=== PATIENT | female | born 1940 | race Two or more races ===

== ENCOUNTER → 2024-07-14 | Outpatient (CLI) | payer MEDICARE, MEDICAID, SELFPAY ==
[2024-07-14 11:06] LABS: Glucose Estimated Average 252 mg/dL (80-131); Hemoglobin A1C 10.4 % Hgb (4.8-6.0)
== END | disposition home or self-care (01) ==
LOC: COPL 09:53
PROVIDERS: PCP Student in an Organized Health Care Education/Training Program; Referring Provider Student in an Organized Health Care Education/Training Program; Visit Provider Student in an Organized Health Care Education/Training Program
DX: E11.59 Type 2 diabetes mellitus with other circulatory complications (principal); Z79.4 Long term (current) use of insulin
CPT/HCPCS: 36415; 83036

== ENCOUNTER 2024-07-28 10:09 | Outpatient (AMB) | payer MEDICARE, MEDICAID, SELFPAY ==
--- NOTE | 2024-07-28 10:11 | PD.RESCLINIC ---
Vital Signs 07/28/24 10:16 Weight 61.462 kg Weight Measurement Method Standing Scale BP 101/61 Blood Pressure Source Automatic Cuff Blood Pressure Location Left Upper Arm Position Sitting Respiration 16 Pulse 127 H Pulse Source Monitor Temp 98.0 F Temp Source Oral Pulse Oximetry (%) 95 Oxygen Delivery Method Room Air Allergies/Meds Allergies & Medications Allergies vadim Allergy (Severe, Verified 07/28/24 10:17) Hives codeine Allergy (Mild, Verified 07/28/24 10:17) NAUSEA VOMIT morphine Allergy (Mild, Verified 07/28/24 10:17) NAUSEA AND VOMIT Medication Reconciliation atorvastatin 20 mg tablet 20 mg PO QHS HLD 1 month #30 tabs 08/11/23 [Rx Confirmed 07/28/24] furosemide 40 mg tablet (Lasix) 40 mg PO QDAY #30 tabs 08/20/23 [Rx Confirmed 07/28/24] spironolactone 25 mg tablet 25 mg PO QDAY #60 tabs 08/20/23 [Rx Confirmed 07/28/24] incontinence pad, liner, disp ([employer] pads) #174 ea 08/27/23 [Rx Confirmed 06/09/24] blood sugar diagnostic (Accutrend Glucose test strips) #25 ea 09/29/23 [Rx Confirmed 06/09/24] blood-glucose meter (Accu-Chek Guide Glucose Meter) #1 ea 09/29/23 [Rx Confirmed 06/09/24] lancets (Fingerstix Lancets) #200 ea 09/29/23 [Rx Confirmed 06/09/24] aspirin 81 mg tablet,delayed release 81 mg PO QDAY #30 tabs 10/15/23 [Rx Confirmed 07/28/24] blood sugar diagnostic (Accu-Chek Guide test strips) #50 ea 10/24/23 [Rx Confirmed 06/09/24] blood-glucose meter,continuous (Dexcom G6 Tin Stacker) #1 ea 10/24/23 [Rx Confirmed 06/09/24] blood-glucose sensor (Dexcom G6 Sensor device) #3 ea 10/24/23 [Rx Confirmed 06/09/24] lancets 28 gauge (Acti-Tio Lancets) #100 ea 10/24/23 [Rx Confirmed 06/09/24] blood pressure monitor (Blood Pressure Kit) #1 ea 11/24/23 [Rx Confirmed 06/09/24] incontinence pad, liner, disp #120 ea 11/24/23 [Rx Confirmed 06/09/24] amlodipine 10 mg tablet 5 mg PO QDAY HTN 05/28/24 [History Confirmed 05/28/24] ferrous sulfate 325 mg (65 mg iron) tablet 325 mg PO QDAY 05/28/24 [History Confirmed 07/28/24] glimepiride 4 mg tablet 4 mg PO QDAY 05/28/24 [History Confirmed 07/28/24] atenolol 25 mg tablet 25 mg PO QDAY #30 tabs 05/31/24 [Rx Confirmed 07/28/24] blood-glucose meter,continuous (Dexcom G7 Tin Stacker) #1 ea 05/31/24 [Rx Confirmed 06/09/24] blood-glucose sensor (Dexcom G7 Sensor device) #1 ea 05/31/24 [Rx Confirmed 06/09/24] pen needle, diabetic 32 gauge x 5/32 (1st Tier Unifine Pentips) #100 ea 05/31/24 [Rx Confirmed 06/09/24] famotidine 20 mg tablet 20 mg PO QDAY #30 tabs 07/28/24 [Rx] insulin glargine 100 unit/mL (3 mL) subcutaneous pen (Basaglar KwikPen U-100 Insulin) 35 unit (0.35 mL) subcut QAM #15 mL 07/28/24 [Rx] metformin 500 mg tablet,extended release 24 hr 500 mg PO QDAY #30 tabs 07/28/24 [Rx] MA Intake Visit Data Collection New Patient or Established: Established Patient (seen at [facility] within 3 years) Seen by Clinical Staff ONLY (RN/MA): No Pain Present Currently: No Pain scale:: 0 Pain Scale Used: [place]/Numerical PCP or OBGYN visit in last 3 months: Yes Do You Feel Safe at Home: Yes Authorities Contacted: N/A Smoking Status Smoking Status: Never smoker Immunization / Flu Flu Vaccine in the Last 12 Months: No Flu Vaccine Exclusion Criteria: No Exclusion Criteria Past Medical History Past Medical History NEUROLOGIC: Negative Neurological Disorders, Transient Ischemic Attacks (TIA), Seizures or Traumatic Brain Injury CARDIAC: Positive Hypercholesterolemia, Congenital Heart Disease and Hypertension; Negative Cardiac Disorders or Congestive Heart Failure RESPIRATORY: Negative Chronic Obstructive Pulmonary Disease (COPD) or Asthma GASTROINTESTINAL: Negative Gastrointestinal Disorders or Hepatitis GENITOURINARY: Negative Genitourinary Disorders or Renal Disease REPRODUCTIVE: Negative Pelvic Inflammatory Disease MUSCULOSKELETAL: Positive Osteoporosis and Carpal Tunnel Syndrome ENT: Positive Cataracts ENDOCRINE: Positive Endocrine Disorders and Diabetes Mellitus Type 2; Negative Diabetes Mellitus Type 1 HEMATOLOGIC: Positive Anemia; Negative Blood Disorders or Sickle Cell Disease OTHER HISTORY: Positive Blood Transfusions and Chicken Pox; Negative Autoimmune Disease, Blood Transfusion Reaction, Anesthesia Reactions, MRSA, VRSA, Vancomycin-Resistant Enterococci, Human Immunodeficiency Virus (HIV), Measles, Mumps, Rubella ([place] Measles), Pertussis, Clostridium Difficile or Cancer Family History FAMILY HISTORY: Positive Family Cardiac Disorders and Family Surgery; Negative Family Psychiatric Problems, Family Respiratory Disorders, Family Gastrointestinal Problems, Family Cancer or Family Anesthesia Reaction Surgical History SURGICAL: Positive Abdominal Surgery, Joint Replacement and Hysterectomy; Negative Cardiac Surgery, Pacemaker, Endocrine Surgery, Thyroidectomy or Ear Surgery Social History SMOKING STATUS: Smoking status: Never smoker ALCOHOL: Alcohol Intake: Never HOUSING: Housing: House LIVES WITH: Lives With: Family Patient Portal Questionaires Social History Living Situation History Housing: House Tobacco History Smoking Status: Never smoker Alcohol History Alcohol Intake: Never Domestic Abuse History Do You Feel Safe at Home: Yes Review of Systems Report any current symptoms Only answer those that you have currently: Past Medical History Past Medical History Have you ever been diagnosed with any of the following: Neurological Problems Transient Ischemic Attacks (TIA): No Seizures: No Traumatic Brain Injury: No Cardiology Problems Hypercholesterolemia: Yes Congestive Heart Failure: No Congenital Heart Disease: Yes Hypertension: Yes Respiratory Problems Chronic Obstructive Pulmonary Disease (COPD): No Asthma: No Stomache/Intestinal Problems Hepatitis: No Genital/Urinary Problems Renal Disease: No Reproductive Problems Pelvic Inflammatory Disease: No Musculoskeletal Problems Osteoporosis: Yes Carpal Tunnel Syndrome: Yes Head,Eye,Nose,Throat Problems Cataracts: Yes Endocrine Problems Diabetes Mellitus Type 1: No Diabetes Mellitus Type 2: Yes Blood Problems Anemia: Yes Sickle Cell Disease: No Other Problems Autoimmune Disease: No Blood Transfusions: Yes Blood Transfusion Reaction: No Anesthesia Reactions: No MRSA: No VRSA: No Vancomycin-Resistant Enterococci: No Human Immunodeficiency Virus (HIV): No Chicken Pox: Yes Measles: No Mumps: No Rubella ([place] Measles): No Pertussis: No Clostridium Difficile: No Cancer: No Surgical History Hysterectomy: Yes Pacemaker: No Thyroidectomy: No History of Present Illness HPI Narrative Patient is an 83-year-old female with a past medical history of hypertension, hyperlipidemia, diabetes mellitus type 2 insulin-dependent, CAD status post stents at distal circumflex artery on Brilinta, severe calcified aortic stenosis, history of recurrent UTIs. Neuro Urologist, Dr. Hess, following patients aortic stenosis with possibility of Transcatheter aortic valve re-placement. Dual anti-platelet until 10/2024. Spironolactone currently on hold. Patient is here to follow-up on A1c and average glucose. A 10.6 and average glucose of 252 (07/14/2024). Denied hypoglycemic episodes of glucose reading below 80. Denied increase perspiration or irritability. Polyuria has improved since discharge form hospital. Best morning glucose reading has been 80. Postprandial glucose usually high 200s. Highest reading of 400. Patient decreased Lantus on her own from 35 units HS to 25 units HS due to fear of hypoglycemic episodes, despite denying any. Recent ER discharge on 06/25/2024 abdominal pain, nausea, diarrhea, and vomiting. UA positive for esterase, WBC 49, and RBC 3 with negative urine culture. Abdominal/Pelvis CT showed pelvicalyceal systems and proximal urteres mild wall thickening and irregular thickening of the urinary bladder wall. As well as extra hepatic biliary tract dilation, recommending U/S. Completed Cephalexin 500 mg TID, for 7 days. Denied dysuria today. Patient accompanied by granddaughter and home health following patient. Review of Systems Review of Systems Narrative Review of Systems: General appearance: NO weight change, NO fatigue, NO weakness, NO fever, NO chills, NO night sweats, No cough Skin: NO rash, NO itching, NO sores, NO moles HEENT: NO Trauma, NO nausea, NO vomiting, NO visual changes, NO blurry vision, NO double vision, YES tinnitus, YES dizziness from sitting to standing position, NO vertigo, NO ear discharge, NO rhinorrhea, NO stuffiness, NO sneezing, NO allergy, NO epistaxis. NO Hoarseness, NO sore throat, NO swollen neck. Cardiac: NO Palpitations, NO dyspnea on exertion, NO orthopnea, NO paroxysmal nocturnal dyspnea, NO edema Respiratory: NO Shortness of Breath, NO Wheezing, NO Cough, NO Sputum, NO hemoptysis GI:NO appetite, NO nausea, NO vomiting, NO dysphagia, NO changes in bowel frequency, NO stool color, NO diarrhea, NO constipation, NO hemetemesis, NO hemorrhoids, NO melena, NO hematechezia, NO abdominal pain, NO jaundice Renal: YES but improved frequency, NO hesitancy, NO urgency, NO dysuria, NO hematuria, NO nocturia, NO incontinence MSK: NO muscle weakness, NO gout, NO arthritis, NO muscle stiffness Neuro: NO headaches, NO tremors, NO weakness, NO paralysis, NO seizures, NO loss of consciousness, NO numbness. Hem: NO anemia, NO easy bruising/bleeding, NO petechiae, NO purpura Endo: NO heat/cold intolerance, NO excessive sweating, YES polyuria, NO polydipsia, NO polyphagia, NO thyroid problems, YES diabetes Pysch: NO mood, NO anxiety, NO depression Objective/Exam Narrative Physical exam: Vitals: T 98.0, BP 101/61, HR 127, RR 16, spO2 95 61.462 General Appearance: Alert and Orientated x3, well-nourished female who is sitting on exam room in no acute distress who is hard of hearing. Thorax/Lungs: Symmetrical with good expansion. Chest and back non-tender. Lungs resonant to percussion. Breath sounds vesicular without crackles, wheezes, or rhonchi Cardiovascular/Peripheral Vascular: No jugular venous distention noted. Systolic murmur, S1 and S2 difficult to appreciate. No peripheral edema noted. Abdomen: Bowel sounds are active. No tenderness to deep or light palpation. Assessment & Plan Diagnosis / Problem List (1) Diabetes: Status: Acute Qualifiers: Diabetes mellitus complication detail: with other circulatory complications Diabetes mellitus complication status: with circulatory complication Diabetes mellitus oil heaterman insulin use: with jail use Diabetes mellitus type: type 2 Qualified Code(s): E11.59 - Type 2 diabetes mellitus with other circulatory complications; Z79.4 - middle or intermediate school principal (current) use of insulin Assessment & Plan: Patient has been non adherent to previous Lantus dose of 35 units and lowered dose to 25 units HS.A1c 10.4 and average glucose 252 (07/14/2024). Patient denied hypoglycemic episodes but improved polyuria. Best morning glucose 80 and postprandial glucose of high 200-300s with worst reading of 400. Jardiance stopped as history of recurrent UTIs. Open to starting Metformin 500 mg QDay. Plan: -Metformin ER 500 mg QDay -Lantus 25 units HS -Consider new A1c and CMP to monitor renal function and starting metformin. (2) Diabetic nephropathy: Status: Acute Qualifiers: Diabetes mellitus type: type 2 Qualified Code(s): E11.21 - Type 2 diabetes mellitus with diabetic nephropathy Assessment & Plan: Given history of diabetes mellitus type 2-insulin dependent, CKD disease can not be ruled out. There is previous labs from June 2024 during ER visit showed a GFR of 49 which is a decrease from 55 during previous hospital discharge in May 2024. No new renal function panel since then, consider new labs for next visit. Improved polyuria. Pre-renal SANGEETHA can not be ruled out as previous labs where all the setting of infection and decrease oral intake. Obstructive SANGEETHA can not be ruled out given history of recurrent UTIs, likely in setting of hyperglycemia, but structural abnormalities vs malignancy an not be ruled out. Pelvis CT: Mild to modersate bilateral renal parenchymal scar formation Mild wall thickening of the pelvicalyceal systems and proximal ureters significant abnormal irregular thickening of the urinary bladder wall Plan: -Urology referral made to Dr. Rabago -consider renal panel (3) Recurrent UTI: Status: Acute Assessment & Plan: Likely secondary to elevated hyperglycemia and glucose in urine but other obstructive vs malignant causes can not be ruled out. Given recurrent UTIs, referral to urology made. Plan: -Urology referral made, Follow up with Dr. Rabago (4) GERD (gastroesophageal reflux disease): Status: Acute Qualifiers: Esophagitis presence: without esophagitis Qualified Code(s): K21.9 - Gastro-esophageal reflux disease without esophagitis Assessment & Plan: History of acid reflux that happens occasional after large meals. Patient takes famotidine 20 mg PRN. Plan: -Famotidine re-ordered Orders: Referrals Urology Laruie Green MD N39.0 - Urinary tract infection, site not specified Additional Assessment Attending note: I, Franky Viera MD, attest that I was physically present for the grove portions of the service and evaluated the patient with the resident and I reviewed and discussed the case with the resident and agree with the resident's findings and plans of care as documented above. Follow-up visit. Hemoglobin A1c of 10.6 with average glucose of 252. Decrease in polyuria. Postprandial glucoses continuing to be high. Patient had decreased dose of Lantus. Diet, exercise, footcare, eye care, insulin injections, and home testing reviewed. Will start metformin 500 mg daily and continue Lantus 25 units nightly. Jardiance stopped due to history of recurrent UTIs. Review of pelvis CT showing significant abnormal irregular thickening of the urinary bladder wall. Will make a referral to urology for further evaluation, may need cystoscopy. Continue to monitor CKD. Franky Viera MD Additional Plan -Urology Consult placed, Lantus and Famotadine re-ordered -Consider Liver U/S ( Mild intrahepatic biliary tract dilation, common hepatic duct 15 mm) -Consider new A1c and CMP to check renal function. - The patient's plan was discussed with attending Dr Maximiliano Green MD PGY1 Internal Medicine Advanced Care Planning Advance care planning discussed with:: patient and other Physician Billing Established Patient Established Patient: E/M Level 3-CPT [id number] Office Procedures [facility] Level of Care Nursing/Assessment Patient Status: Established Patient Nursing Assessment/Reassessment: Medication Reconciliation, Update PMH in EMR and Vital Signs Coordination of Care: Complex Care and Chronic Disease 1-5, Education Complex Pt/Fam, Lab and Imaging orders and Staff clarify orders Established Patient Charge Established Patient Point Assignment: 100 Established Patient Point Charge: EP Level 3 (80-115)
[2024-07-28 10:16] VITALS: BP 101/61; PULSE 127; RESP 16; TEMP 36.7; O2SAT 95
== END 2024-07-28 10:53 | disposition home or self-care (01) ==
LOC: HODAHC 10:09
PROVIDERS: PCP Student in an Organized Health Care Education/Training Program; Referring Provider Student in an Organized Health Care Education/Training Program; Supervising Provider Internal Medicine
DX: E11.21 Type 2 diabetes mellitus with diabetic nephropathy (principal); E11.65 Type 2 diabetes mellitus with hyperglycemia; Z79.4 Long term (current) use of insulin; K21.9 Gastro-esophageal reflux disease without esophagitis; N32.89 Other specified disorders of bladder; K83.8 Other specified diseases of biliary tract; Z87.440 Personal history of urinary (tract) infections
CPT/HCPCS: 99213; G0463

== ENCOUNTER 2024-10-03 14:43 | Emergency (ER) | payer MEDICARE, MEDICAID, SELFPAY ==
[2024-10-03] VITALS (7 sets, daily range): BP systolic 138–161; BP diastolic 75–79; PULSE 84–112; RESP 16–19; TEMP 37.1–38.6; O2SAT 89–98; BMI 29.2
--- NOTE | 2024-10-03 15:43 | XR_ITS ---
Examination: AP chest radiograph. TECHNIQUE: AP portable semiupright chest single view. EXAMINATION: October 03, 2024 at 1605 hours Comparison 05/28/2024 INDICATION: Shortness of breath. FINDINGS: Significant left base pneumonia. No pleural fluid. No thrombus identified. Significant vascular congestion. IMPRESSION: Significant left base pneumonia Mild associated heart failure
--- NOTE | 2024-10-03 15:44 | EDNOTE_ITS ---
Upper Respiratory Inf. RME/HPI General Chief Complaint: Flu Like Symptoms Stated Complaint: LETHARGIC, COUGH, FEVER Time Seen by Provider: 10/03/24 15:31 Arrival date/time: 10/03/24 14:43 This is an 84-year-old female that is brought in by granddaughter with complaints of lethargy, cough, fever that started last night. Patient has a history of anemia, hyperlipidemia, high blood pressure and diabetes. Related Data Home Medications ?Medication ?Instructions ?Recorded ?Confirmed amlodipine 10 mg tablet 5 mg PO QDAY HTN 05/28/24 Held on 05/31/24. Instructions: Resume on 06/07/24. Hold due to normal BP. Resume per PCP ferrous sulfate 325 mg (65 mg 325 mg PO QDAY 05/28/24 07/28/24 iron) tablet glimepiride 4 mg tablet 4 mg PO QDAY 05/28/24 Previous Rx's ?Medication ?Instructions ?Recorded atorvastatin 20 mg tablet 20 mg PO QHS HLD 1 month #30 tabs 08/11/23 furosemide 40 mg tablet (Lasix) 40 mg PO QDAY #30 tabs 08/20/23 Held on 05/31/24. Instructions: Resume on 06/03/24. Hold due to [place] and normal BP. Resume per PCP spironolactone 25 mg tablet 25 mg PO QDAY #60 tabs Held on 05/31/24. Instructions: Resume on 06/03/24. Hold due to normal BP. Resume per PCP incontinence pad, liner, disp #174 ea 08/27/23 ([employer] pads) blood sugar diagnostic (Accutrend #25 ea 09/29/23 Glucose test strips) blood-glucose meter (Accu-Chek #1 ea 09/29/23 Guide Glucose Meter) lancets (Fingerstix Lancets) #200 ea 09/29/23 aspirin 81 mg tablet,delayed 81 mg PO QDAY #30 tabs release blood sugar diagnostic (Accu-Chek #50 ea 10/24/23 Guide test strips) blood-glucose meter,continuous #1 ea 10/24/23 (Dexcom G6 Link Wire Fabric Machine Tender) blood-glucose sensor (Dexcom G6 #3 ea 10/24/23 Sensor device) lancets 28 gauge (Acti-Tio #100 ea 10/24/23 Lancets) blood pressure monitor (Blood #1 ea 11/24/23 Pressure Kit) incontinence pad, liner, disp #120 ea 11/24/23 atenolol 25 mg tablet 25 mg PO QDAY #30 tabs 05/31 blood-glucose meter,continuous #1 ea 05/31/24 (Dexcom G7 Link Wire Fabric Machine Tender) blood-glucose sensor (Dexcom G7 #1 ea 05/31/24 Sensor device) pen needle, diabetic 32 gauge x #100 ea 05/31/24 (1st Tier Unifine Pentips) famotidine 20 mg tablet 20 mg PO QDAY #30 tabs 07/28 insulin glargine 100 unit/mL (3 35 unit (0.35 mL) subc ut QAM #15 mL 07/28/24 mL) subcutaneous pen (Basaglar KwikPen U-100 Insulin) metformin 500 mg tablet,extended 500 mg PO QDAY #30 ta bs 07/28/24 release 24 hr levofloxacin 750 mg tablet 750 mg PO QDAY #5 tabs 10/26 Allergies Allergy/AdvReac Type Severity Reaction Status Date / Time vadim Allergy Severe Hives Verified 10/03/24 14:45 codeine Allergy Mild NAUSEA Verified 10/03/24 14:45 VOMIT morphine Allergy Mild NAUSEA AND Verified 10/03/24 14:45 VOMIT Review of Systems Review of Systems Systems Reviewed: All systems reviewed, normal except as documented Past Medical History Past Medical History CARDIAC: Positive Cardiac Disorders, Hypercholesterolemia, Congenital Heart Disease and Hypertension MUSCULOSKELETAL: Positive Musculoskeletal Disorders, Osteoporosis and Carpal Tunnel Syndrome ENT: Positive Cataracts ENDOCRINE: Positive Endocrine Disorders and Diabetes Mellitus Type 2 HEMATOLOGIC: Positive Anemia OTHER HISTORY: Positive Blood Transfusions and Chicken Pox Family History FAMILY HISTORY: Positive Family Cardiac Disorders and Family Surgery Surgical History SURGICAL: Positive Abdominal Surgery, Joint Replacement and Hysterectomy Social History SMOKING STATUS: Never smoker SUBSTANCE USE: does not use ALCOHOL: Never ED Exam General General appearance: Present alert and in no apparent distress Head Head exam: Present atraumatic Eye Eye exam: Present normal appearance, PERRL and EOMI ENT ENT exam: Present normal exam, normal oropharynx and mucous membranes moist Neck Neck exam: Present normal inspection, full ROM and trachea midline Chest Chest inspection: Present normal inspection and symmetric chest wall rise Respiratory Respiratory exam: Present normal lung sounds bilaterally Cardiovascular Cardiovascular exam: Present regular rate, normal rhythm and normal heart sounds Abdominal Exam Abdominal exam: Present soft Extremities Exam Extremities exam: Present normal inspection and full ROM Back Exam Back exam: Present normal inspection and full ROM Neurological Exam Neurological exam: Present alert, oriented X3 and CN II-XII intact Psychiatric Psychiatric exam: Present normal affect and normal mood Skin Skin exam: Present warm, dry, intact and normal color Course Quality Measures none Orders Category Date Time Status Bedside COVID-19 Antigen Test NOW Care 10/03/24 15:43 Completed Bedside Influenza A&B Antigen Test NOW Care 10/03/24 15:[address] head/brain wo con Stat Exams 10/03/24 15:45 Completed XR chest 1V Stat Exams 10/03/24 15:43 Completed Blood Culture (Lab) Stat Lab 10/03/24 15:59 Completed CBC Stat Lab 10/03/24 15:59 Completed Comprehensive Metabolic Panel Stat Lab 10/03/24 15:59 Completed Lactate (Lactic Acid) Stat Lab 10/03/24 15:59 Completed Lipase Stat Lab 10/03/24 15:59 Completed Procalcitonin Stat Lab 10/03/24 15:59 Completed Acetaminophen Supp [Tylenol Supp] Med 10/03/24 15:46 Discontinued 650 mg MN X1 ONE Azithromycin Po [Zithromax PO] Med 10/03/24 17:28 Discontinued 500 mg PO X1 ONE cefTRIAXone [Rocephin] 1,000 mg Med 10/03/24 17:28 Discontinued Sodium Chloride 0.9% [Ns] 50 ml IV X1 Vital Signs Vital signs: Vital Signs Temperature 99.7 F 10/03/24 14:59 Pulse Rate 112 H 10/03/24 14:59 Respiratory Rate 16 10/03/24 14:59 Blood Pressure 161/75 H 10/03/24 14:59 Pulse Oximetry (%) 89 L 10/03/24 14:59 Oxygen Delivery Method Room Air 10/03/24 14:59 Upper Respiratory Infection MDM Narrative MDM Narrative:: Chest x ray: FINDINGS: Significant left base pneumonia. No pleural fluid. No thrombus identified. Significant vascular congestion. IMPRESSION: Significant left base pneumonia Mild associated heart failure ct head: Findings: No significant ventricular enlargement. Intra-axial or extra-axial hemorrhage density is not seen. No mass effect or midline shift Basal cisterns are not remarkable. Fourth ventricle is midline. Cranial vault intact. Impression: Negative for acute hemorrhage, mass effect or midline shift Consider brain MRI follow-up, stroke protocol Patient's labs unremarkable. Patient's urine positive for UTI. Will send a urine culture. Patient's chest x-ray shows pneumonia. Will treat. Patient given a dose of Zithromax also Rocephin. Called granddaughter at [phone] and I let her know that she will be going home and she will need to be picked up. Patient needs to follow-up with primary provider in 1 to 2 days. Come back to the emergency room if symptoms change or worsen. Patient data External records reviewed:: [facility] previous records Clinical information provided by:: patient Social determinants that could affect healthcare access:: none Patient has the following chronic illnesses:: see hpi How is presenting disease/condition affected by chronic disease/condition?: exacerbated by Evaluation data The following diagnostics were reviewed and interpreted by me:: lab results and radiology exam(s) Lab and/or radiology exams considered but not ordered:: none Interpretation Summary: see note Medications / Prescriptions Medications or Prescriptions considered but not ordered:: none Medication administrations:: Medication Administration History Discontinued Medications Acetaminophen (Acetaminophen Supp 650 Mg Supp) 650 mg MN X1 ONE Stop: 10/03/24 15:47 Last Admin: 10/03/24 16:00 Dose: 650 mg Documented By: AJIT Azithromycin (Azithromycin 250 Mg Tablet) 500 mg PO X1 ONE Stop: 10/03/24 17:29 Last Admin: 10/03/24 18:42 Dose: 500 mg Documented By: AJIT Ceftriaxone Sodium 1,000 mg/ (Sodium Chloride) 50 mls @ 100 mls/hr IV X1 ONE Stop: 10/03/24 17:57 Last Infusion: 10/03/24 19:02 Dose: Infused Documented By: Admin: 10/03/24 18:32 Dose: 100 mls/hr Documented By: TM see mar Consultations Consultation(s) initiated? (list below): No Diagnosis Upper Respiratory Differential Diagnosis: upper respiratory infection, viral infection, influenza and other (pneumonia and uti ) Most likely diagnosis given after review of the tests above:: pneumonia and uti Admission Indicated Admission indicated?: not indicated Admission Request Was there a request for admission?: No Disposition Plan Disposition Plan: Discharge Discharge Attestation Discharge Attestation: The patient and all family members were given an opportunity to ask questions and understood the discharge instructions. Discharge instructions specifically effects, indications for sooner follow up or return to the emergency department, and the expected course of current diagnosis. Patient condition: Stable Discharge Plan Plan Patient Disposition: HOME (Self Care) Patient condition on transfer: Stable Prescriptions/Referrals Prescriptions/Med Rec: New levofloxacin 750 mg tablet 750 mg PO QDAY Qty: 5 0RF No Action atorvastatin 20 mg tablet 20 mg PO QHS 30 Days Qty: 30 3RF (DME) incontinence pad, liner, disp Pad See Rx Instructions .Route Qty: 120 5RF Rx Instructions: As directed (DME) blood pressure monitor [Blood Pressure Kit] Kit See Rx Instructions .Route Qty: 1 0RF Rx Instructions: As directed (DME) [employer] Pad See Rx Instructions .Route Qty: 174 0RF Rx Instructions: As directed metformin 500 mg tablet extended release 24 hr 500 mg PO QDAY Qty: 30 2RF famotidine 20 mg tablet 20 mg PO QDAY MDD 20 mg Qty: 30 2RF insulin glargine [Basaglar KwikPen U-100 Insulin] 100 unit/mL (3 mL) insulin pen 35 unit subcut QAM Qty: 15 2RF (DME) Accutrend Glucose test strips Strip See Rx Instructions .Route Qty: 25 3RF Rx Instructions: As directed (DME) blood-glucose meter [Accu-Chek Guide Glucose Meter] Misc See Rx Instructions .Route Qty: 1 0RF Rx Instructions: As directed (DME) lancets [Fingerstix Lancets] Misc See Rx Instructions .Route Qty: 200 0RF Rx Instructions: As directed (DME) Dexcom G6 Link Wire Fabric Machine Tender Misc See Rx Instructions .Route Qty: 1 0RF Rx Instructions: As directed (DME) Dexcom G6 Sensor Device See Rx Instructions .Route Qty: 3 1RF Rx Instructions: As directed (DME) Accu-Chek Guide test strips Strip See Rx Instructions .Route Qty: 50 2RF Rx Instructions: As directed (DME) lancets [Acti-Tio Lancets] 28 gauge misc See Rx Instructions .Route Qty: 100 1RF Rx Instructions: As directed ferrous sulfate 325 mg (65 mg iron) Tablet 325 mg PO QDAY glimepiride 4 mg Tablet 4 mg PO QDAY amlodipine 10 mg tablet 5 mg PO QDAY (DME) Dexcom G7 Sensor Device See Rx Instructions .Route Qty: 1 6RF Rx Instructions: As directed (DME) Dexcom G7 Link Wire Fabric Machine Tender Misc See Rx Instructions .Route Qty: 1 0RF Rx Instructions: As directed (DME) pen needle, diabetic [1st Tier Unifine Pentips] 32 gauge x 5/32 needle See Rx Instructions .Route Qty: 100 2RF Rx Instructions: As directed atenolol 25 mg Tablet 25 mg PO QDAY Qty: 30 0RF spironolactone 25 mg tablet 25 mg PO QDAY Qty: 60 0RF furosemide [Lasix] 40 mg tablet 40 mg PO QDAY Qty: 30 1RF aspirin 81 mg Tablet,Delayed Release (Dr/Ec) 81 mg PO QDAY Qty: 30 1RF Referrals: No Primary/Family,Physician [Primary Care Provider] - In 1 week Problem List Clinical Impression: Pneumonia Patient/Caregiver Discharge Instructions Discharge Activity: activity as tolerated Education Materials: ED Pneumonia (Adult) Additional Instructions: Please drink plenty of fluids. Take antibiotics as prescribed. Follow-up with primary provider in 1 to 2 days. Come back to the emergency room if symptoms change or worsen. Print Language: British Stand Alone Forms: Diane Award Info., Patient Portal Info Letter PA/[employer] Supervising Physician [employer] Supervising Physician: gayle
--- NOTE | 2024-10-03 15:45 | XR_ITS ---
Examination: CT brain head without contrast. 2-D sagittal coronal reconstructions Date and time of exam:October 03, 2024 1753 hours INDICATIONS: Altered mental status lethargy today COMPARISON: August 17, 2023 CTDI: vol (mGy):53.8 DLP: (mGycm):1101 Technique: Multiple CT axial sections of the brain have been obtained, 5 mm slice thickness. Contrast has not been administered. 2-D sagittal, coronal reconstructions have been obtained Low dose protocols were performed. One or more of the following dose reduction techniques were used; automated exposure control, adjustment of the mA and/or KV according to patient size, use of iterative reconstruction technique. Findings: No significant ventricular enlargement. Intra-axial or extra-axial hemorrhage density is not seen. No mass effect or midline shift Basal cisterns are not remarkable. Fourth ventricle is midline. Cranial vault intact. Impression: Negative for acute hemorrhage, mass effect or midline shift Consider brain MRI follow-up, stroke protocol
--- NOTE | 2024-10-03 15:47 | PC.NURSE ---
PT COMES IN FROM HOME, GRANDDAUGHTER AT BEDSIDE TO PROVIDE CURRENT SITUATION AND HISTORY. PER GRANDDAUGHTER PT WOKE UP LAST NIGHT COUGHING, WARM TO TOUCH AND LETHARGIC. PT NORMALLY WALKS AROUND WITH WALKER NO RECENT FALLS, BUT TODAY MULTIPLE PEOPLE HAD TO ASSIST HER GET INTO THE CAR. GRANDDAUGHTER REMAINS AT BEDSIDE ATTENTIVE TO PT.
[2024-10-03] MEDS: ACETAMINOPHEN SUPP 650 MG SUPP PR (16:00)
[2024-10-03 16:19] LABS: Lactate (Lactic Acid) 1.2 mMol/L (0.4-2.0)
[2024-10-03 16:22] LABS: Basophils % (Auto) 0 % (0-2.5); Eosinophils % (Auto) 0 % (0-10); Hematocrit 33.2 % (36.0-46.0); Hemoglobin 11.4 g/dL (12.0-16.0); Immature Granulocytes % (Auto) 0 % (0-0); Immature Granulocytes Auto 0.03 Thou/mm3 (0.00-0.00); Lymphocytes # (Auto) 0.6 Thou/mm3 (1.0-4.8); Lymphocytes % (Auto) 7 % (10-50); Mean Corpuscular HGB Conc 34.3 g/dl (31.0-37.0); Mean Corpuscular Hemoglobin 30.7 pg (25.0-35.0); Mean Corpuscular Volume 90 fL (80-100); Monocytes # (Auto) 0.8 Thou/mm3 (0.0-0.8); Monocytes % (Auto) 10 % (0-12); Neutrophils # (Auto) 6.5 Thou/mm3 (1.8-7.7); Neutrophils % (Auto) 82 % (37-80); Nucleated Red Blood Cell % 0 /100 WBC (0); Platelet Count 231 Thou/mm3 (140-440); RDW Standard Deviation 44.3 fL (36.4-46.3); Red Blood Count 3.71 Miln/mm3 (4.00-5.20); White Blood Count 7.9 Thou/mm3 (3.6-11.0)
[2024-10-03 16:54] LABS: Alanine Aminotransferase 16 U/L (10-49); Albumin, Serum 3.8 gm/dL (3.4-4.8); Alkaline Phosphatase 120 U/L (46-116); Anion Gap 10 (7-16); Aspartate Amino Transferase 21 U/L (0-34); BUN/Creatinine Ratio 13 Ratio (12-20); Bilirubin,Total 0.9 mg/dL (0.3-1.2); Blood Urea Nitrogen 13 mg/dL (9-23); Calcium 8.6 mg/dL (8.3-10.6); Calcium (Corrected) 8.8 mg/dL (8.5-10.1); Carbon Dioxide 24.3 mMol/L (20.0-31.0); Chloride 101 mMol/L (98-107); Estimated Creatinine Clearance 40.6 mL/min (>60); Globulin 3.7 gm/dL (2.3-3.5); Glucose 83 mg/dL (74-106); Lipase 26 U/L (12-53); Osmolality,Calculated 269 (275-295); Potassium 3.7 mMol/L (3.4-5.1); Procalcitonin 0.06 ng/ml (0.0-0.49); Sodium 135 mMol/L (136-145); Total Protein 7.5 gm/dL (5.7-8.2); eGFR 55 See Note
[2024-10-03] MEDS: AZITHROMYCIN 250 MG TABLET 500 MG PO (18:42)
== END 2024-10-03 19:40 | disposition home or self-care (01) ==
PROVIDERS: Nurse Practitioner Family; Emergency Provider Emergency Medicine
DX: J18.9 Pneumonia, unspecified organism (principal); E78.5 Hyperlipidemia, unspecified; E11.9 Type 2 diabetes mellitus without complications
CPT/HCPCS: 36415; 70450; 71045; 80053; 81001; 83605; 83690; 84145; 85025; 87040; 87086; 87400; 87811; 96365; 99284; J0696; A9270

== ENCOUNTER → 2024-11-18 | Outpatient (BNVA) | payer MEDICARE, MEDICAID, SELFPAY | END | disposition home or self-care (01) | PROVIDERS: PCP Nurse Practitioner Family; Referring Provider Nurse Practitioner Family; Visit Provider Urology | DX: N39.0 Urinary tract infection, site not specified (principal); N32.89 Other specified disorders of bladder; I12.9 Hypertensive chronic kidney disease with stage 1 through stage 4 chronic kidney disease, or unspecified chronic kidney disease; E11.22 Type 2 diabetes mellitus with diabetic chronic kidney disease; N18.2 Chronic kidney disease, stage 2 (mild); I25.10 Atherosclerotic heart disease of native coronary artery without angina pectoris; E11.40 Type 2 diabetes mellitus with diabetic neuropathy, unspecified; E78.00 Pure hypercholesterolemia, unspecified | CPT/HCPCS: 81003; 99203; G0463 ==

== ENCOUNTER → 2025-01-04 | Outpatient (CLI) | payer MEDICARE, MEDICAID, SELFPAY ==
[2025-01-04 10:43] LABS: Albumin, Serum 4.4 gm/dL (3.4-4.8); Anion Gap 4 (7-16); BUN/Creatinine Ratio 23 Ratio (12-20); Blood Urea Nitrogen 28 mg/dL (9-23); Calcium 9.5 mg/dL (8.3-10.6); Calcium (Corrected) 9.5 mg/dL (8.5-10.1); Chloride 100 mMol/L (98-107); Creatinine (Component) 1.2 mg/dL (0.6-1.3); Glucose 207 mg/dL (74-106); Osmolality,Calculated 277 (275-295); Potassium 3.7 mMol/L (3.4-5.1); Sodium 133 mMol/L (136-145); eGFR 44 See Note
== END | disposition home or self-care (01) ==
LOC: COPL 09:24
PROVIDERS: PCP Family Medicine; Referring Provider Internal Medicine Cardiovascular Disease; Visit Provider Internal Medicine Cardiovascular Disease
DX: Z95.5 Presence of coronary angioplasty implant and graft (principal)
CPT/HCPCS: 36415; 80069

== ENCOUNTER → 2025-01-10 | Outpatient (BNVA) | payer MEDICARE, MEDICAID, SELFPAY | END | disposition home or self-care (01) | PROVIDERS: PCP Nurse Practitioner Family; Referring Provider Nurse Practitioner Family; Visit Provider Urology | DX: N32.89 Other specified disorders of bladder (principal); N32.3 Diverticulum of bladder; N35.92 Unspecified urethral stricture, female; Z87.440 Personal history of urinary (tract) infections; I12.9 Hypertensive chronic kidney disease with stage 1 through stage 4 chronic kidney disease, or unspecified chronic kidney disease; E11.22 Type 2 diabetes mellitus with diabetic chronic kidney disease; N18.9 Chronic kidney disease, unspecified | CPT/HCPCS: 52281; 96372; A4217; A4649; C1894; J1580; A9270 ==

== ENCOUNTER → 2025-01-11 | Outpatient (CLI) | payer MEDICARE, MEDICAID, SELFPAY | END | disposition home or self-care (01) | LOC: SLDO 14:43 | PROVIDERS: Referring Provider Urology; Visit Provider Urology | DX: N39.0 Urinary tract infection, site not specified (principal) | CPT/HCPCS: 87086 ==

== ENCOUNTER 2025-01-30 14:26 | Emergency (ER) | payer MEDICARE, MEDICAID, SELFPAY ==
[2025-01-30 14:31] VITALS: PULSE 120; RESP 18; O2SAT 97; BMI 26.5
--- NOTE | 2025-01-30 14:39 | XR_ITS ---
Examination: CT brain head without contrast. 2-D sagittal coronal reconstructions Date and time of exam:January 30, 2025 1504 hours Comparison October 03, 2024 INDICATIONS: Altered mental status beginning this morning CTDI: vol (mGy):49.9 DLP: (mGycm):1005 Technique: Multiple CT axial sections of the brain have been obtained, 5 mm slice thickness. Contrast has not been administered. 2-D sagittal, coronal reconstructions have been obtained Low dose protocols were performed. One or more of the following dose reduction techniques were used; automated exposure control, adjustment of the mA and/or KV according to patient size, use of iterative reconstruction technique. Findings: No significant ventricular enlargement. Intra-axial or extra-axial hemorrhage density is not seen. No mass effect or midline shift Basal cisterns are not remarkable. Fourth ventricle is midline. Cranial vault intact. Significant left maxillary sinusitis Impression: Negative for acute hemorrhage, mass effect or midline shift Advise clinical correlation and follow up accordingly
--- NOTE | 2025-01-30 14:39 | XR_ITS ---
Examination: AP chest single view Technique one AP portable semiupright chest single view Date and time: January 30, 2025 1456 hours Comparison October 03, 2024 INDICATIONS: Generalized weakness today. FINDINGS: Normal heart size. Lungs are clear. Prominent osteopenia IMPRESSION: No active disease
--- NOTE | 2025-01-30 14:39 | EKG_ITS ---
[facility] Test Date: 2025-01-30 Pat Name: YOLANDA RENO Department: Room: - Gender: Female Ski Topper: : 1940 Requested By: Wesley Barry Order Number: [id number] Reading MD: Wesley Barry Measurements Intervals [place] Rate: 120 P: MS: QRS: -50 QRSD: 102 T: 110 QT: 320 QTc: 453 Interpretive Statements ATRIAL FIBRILLATION WITH RAPID VENTRICULAR RESPONSE LEFT AXIS DEVIATION [QRS AXIS < -30] MODERATE VOLTAGE CRITERIA FOR LVH, CONSIDER NORMAL VARIANT [MEETS CRITERIA IN ONE OF: R(aVL), S(V1), R(V5), R(V5/V6)+S(V1)] POSSIBLE ANTEROSEPTAL MYOCARDIAL INFARCTION , OF INDETERMINATE AGE [30 ms Q WAVE IN V1-V4] MODERATE T-WAVE ABNORMALITY, CONSIDER LATERAL ISCHEMIA [-0.1+ mV T-WAVE IN I/aVL/V5/V6] Compared to ECG 05/28/2024 08:04:59 Left-axis deviation now present T-wave abnormality now present Possible ischemia now present Sinus rhythm no longer present Left anterior fascicular block no longer present ST (T wave) deviation no longer present Myocardial infarct finding still present /store/S0/[id number]
[2025-01-30 14:42] VITALS: BP 125/73; PULSE 104; PULSE 108; RESP 16; TEMP 37.2; O2SAT 98
[2025-01-30] MEDS: SODIUM CHLORIDE 0.9% 1000 ML 1,000 ML 999 ML IV ×2 (14:46→18:44)
[2025-01-30 15:00] LABS: Base Excess, Venous 0 (-3-3); O2 Saturation, Venous 80 % (96-97); PCO2, Venous 39 mmHg (36-56); PO2, Venous 41 mmHg (15-58); pH, Venous 7.42 (7.33-7.66)
[2025-01-30 15:04] LABS: Beta Hydroxybutyrate 0.8 mmol/L (<0.6)
[2025-01-30 15:07] LABS: Basophils # (Auto) 0.1 Thou/mm3 (0.0-0.2); Basophils % (Auto) 1 % (0-2.5); Eosinophils # (Auto) 0.1 Thou/mm3 (0.0-0.5); Eosinophils % (Auto) 1 % (0-10); Hematocrit 37.3 % (36.0-46.0); Hemoglobin 13.8 g/dL (12.0-16.0); Immature Granulocytes % (Auto) 0 % (0-0); Immature Granulocytes Auto 0.01 Thou/mm3 (0.00-0.00); Lymphocytes # (Auto) 1.5 Thou/mm3 (1.0-4.8); Lymphocytes % (Auto) 22 % (10-50); Mean Corpuscular Hemoglobin 32.3 pg (25.0-35.0); Mean Corpuscular Volume 87 fL (80-100); Monocytes # (Auto) 0.6 Thou/mm3 (0.0-0.8); Monocytes % (Auto) 9 % (0-12); Neutrophils # (Auto) 4.7 Thou/mm3 (1.8-7.7); Neutrophils % (Auto) 68 % (37-80); Nucleated Red Blood Cell % 0 /100 WBC (0); Platelet Count 200 Thou/mm3 (140-440); RDW Standard Deviation 41.3 fL (36.4-46.3); Red Blood Count 4.27 Miln/mm3 (4.00-5.20)
[2025-01-30 15:26] LABS: Collection Type, Urine Clean Catch; Squamous Epithelial Cell,Urine 0 /hpf (0-5)
--- NOTE | 2025-01-30 15:29 | PD.EDAMS ---
Altered Mental Status RME/HPI General Chief Complaint: Altered Mental Status Stated Complaint: AMS Time Seen by Provider: 01/30/25 14:36 Arrival date/time: 01/30/25 14:26 RME / HPI RME / HPI narrative: 84 year old female with history of hypertension, diabetes, aortic stenosis, s/p PCI 2023 presents to the ED BIBA from home for evaluation of altered mental status today. Per the family, the patient went to sleep at her normal state of health and noted when she woke up this morning she appeared confused and didn't know what she was doing. Unsure what time the patient went to bed. Per medics, blood sugar was not measurable. While in the ED patient is altered and unable to provide any additional history. Related Data Home Medications ?Medication ?Instructions ?Recorded ?Confirmed amlodipine 10 mg tablet 5 mg PO QDAY HTN 05/28/24 01/30/25 glimepiride 4 mg tablet 4 mg PO QDAY 05/28/24 01/30/25 insulin glargine 100 unit/mL (3 25 unit subcut QAM 01/30/25 01/30/25 mL) subcutaneous pen (Basaglar KwikPen U-100 Insulin) Previous Rx's ?Medication ?Instructions ?Recorded atorvastatin 20 mg tablet 20 mg PO QHS HLD 1 month #30 tabs 08/11/23 furosemide 40 mg tablet (Lasix) 40 mg PO QDAY #30 tabs 08/20/23 Held on 05/31/24. Instructions: Resume on 06/03/24. Hold due to SANGEETHA and normal BP. Resume per PCP spironolactone 25 mg tablet 25 mg PO QDAY #60 tabs 08/20/23 Held on 05/31/24. Instructions: Resume on 06/03/24. Hold due to normal BP. Resume per PCP incontinence pad, liner, disp #174 ea 08/27/23 (Depend [employer] pads) blood sugar diagnostic (Accutrend #25 ea 09/29/23 Glucose test strips) blood-glucose meter (Accu-Chek #1 ea 09/29/23 Guide Glucose Meter) lancets (Fingerstix Lancets) #200 ea 09/29/23 aspirin 81 mg tablet,delayed 81 mg PO QDAY #30 tabs 10/15/23 release blood sugar diagnostic (Accu-Chek #50 ea 10/24/23 Guide test strips) blood-glucose sensor (Dexcom G6 #3 ea 10/24/23 Sensor device) blood-glucose,allergist/immunologist physician,cont #1 ea 10/24/23 (Dexcom G6 [employer]) lancets 28 gauge (Acti-Tio #100 ea 10/24/23 Lancets) blood pressure monitor (Blood #1 ea 11/24/23 Pressure Kit) incontinence pad, liner, disp #120 ea 11/24/23 blood-glucose sensor (Dexcom G7 #1 ea 05/31/24 Sensor device) blood-glucose,allergist/immunologist physician,cont #1 ea 05/31/24 (Dexcom G7 [employer]ender) pen needle, diabetic 32 gauge x #100 ea 05/31/24 (1st Tier Unifine Pentips) nitrofurantoin 100 mg PO Q12H 5 days #10 caps 01/30/25 monohydrate/macrocrystals 100 mg capsule (Macrobid) Allergies Allergy/AdvReac Type Severity Reaction Status Date / Time vadim Allergy Severe Hives Verified 01/10/25 11:54 codeine Allergy Mild NAUSEA Verified 01/10/25 11:54 VOMIT morphine Allergy Mild NAUSEA AND Verified 01/10/25 11:54 VOMIT Review of Systems Review of Systems ROS Unobtainable: unobtainable due to mental status Past Medical History Past Medical History CARDIAC: Positive Cardiac Disorders, Atrial Fibrillation, Hypercholesterolemia, Congenital Heart Disease and Hypertension MUSCULOSKELETAL: Positive Musculoskeletal Disorders, Osteoporosis and Carpal Tunnel Syndrome ENT: Positive Cataracts ENDOCRINE: Positive Endocrine Disorders and Diabetes Mellitus Type 2 HEMATOLOGIC: Positive Anemia OTHER HISTORY: Positive Blood Transfusions and Chicken Pox Family History FAMILY HISTORY: Positive Family Cardiac Disorders and Family Surgery Surgical History SURGICAL: Positive Coronary Stent, Abdominal Surgery, Joint Replacement and Hysterectomy Social History SMOKING STATUS: Never smoker SUBSTANCE USE: does not use ED Exam Narrative Physical exam: GENERAL APPEARANCE: Awake, alert and oriented to person only, no obvious distress, nontoxic appearing HEENT: NC, AT. MMM. EOMI, clear conjunctiva, oropharynx clear. NECK: Supple without lymphadenopathy. No stiffness or restricted ROM. HEART: Normal rate and regular rhythm, normal S1/S1, no m/r/g LUNGS: CTAB, moving air well. No crackles or wheezes are heard. ABDOMEN: Soft, old open cholecystectomy scar in the RUQ and large midline suprapubic scar noted, nontender, nondistended with good bowel sounds heard. BACK: No midline C/T/L spine pain or deformity, No CVAT, no obvious deformity. EXTREMITIES: Without cyanosis, clubbing or edema. MUSCULOSKELETAL: FROM of all major joints, no chest tenderness NEUROLOGICAL: Awake, alert and oriented to person only, moving all 4 extremities. CN not formally tested but appear grossly intact. Skin: Warm and dry without any rash. Course Quality Measures none Orders Category Date Time Status Bedside Blood Glucose NOW Care 01/30/25 14:38 Completed Personnel Security Specialist Q4H START 00 Care 01/30/25 14:42 Completed EKG (ED ONLY) *Do not use* NOW Care 01/30/25 14:39 Completed Insert IV NOW Care 01/30/25 14:[address] head/brain wo con Stat Exams 01/30/25 14:39 Completed EKG (ED Only) Stat Exams 01/30/25 14:39 Draft XR chest 1V Stat Exams 01/30/25 14:39 Completed Blood Culture (Lab) Stat Lab 01/30/25 16:50 Received CBC Stat Lab 01/30/25 14:56 Completed CMP [Comprehensive Metabolic Panel] Stat Lab 01/30/25 14:56 Completed Ketone [Beta Hydroxybutyrate] Stat Lab 01/30/25 14:56 Completed Urinalysis Stat Lab 01/30/25 15:21 Completed VBG [Venous Blood Gas] Stat Lab 01/30/25 14:56 Completed Insulin Regular Med 01/30/25 15:37 Discontinued 8 unit SC X1 ONE Sodium Chloride 0.9% 1000 ml [Ns] 1,000 ml Med 01/30/25 14:37 Discontinued IV 999 mls/hr Sodium Chloride 0.9% 1000 ml [Ns] 1,000 ml Med 01/30/25 18:40 Discontinued IV 999 mls/hr Sodium Chloride 0.9% 1000 ml [Ns] 1,000 ml Med 01/30/25 18:41 Discontinued IV 999 mls/hr cefTRIAXone/D5w 1gm IV premix [Rocephin/D5w 1gm IV Med 01/30/25 16:31 Discontinued premix] 1 gm in 50 ml IV X1 Vital Signs Vital signs: Vital Signs Temperature 98.9 F 01/30/25 14:42 Pulse Rate 108 H 01/30/25 14:42 Respiratory Rate 16 01/30/25 14:42 Blood Pressure 125/73 01/30/25 14:42 Pulse Oximetry (%) 98 01/30/25 14:42 Oxygen Delivery Method Room Air 01/30/25 14:42 Pulse ox is 98% on room air which is adequate. Altered Mental Status MDM Narrative MDM Narrative:: Tanya Garvin am scribing for and in the presence of Dr. Barry. Patient data External records reviewed:: [facility] previous records (I reviewed ED visit on 10/03/2024 and patient was diagnosed with pneumonia. ) and EMS form Clinical information provided by:: patient, EMS and family Social determinants that could affect healthcare access:: none Patient has the following chronic illnesses:: hypertension, diabetes, aortic stenosis, s/p PCI 2023 How is presenting disease/condition affected by chronic disease/condition?: exacerbated by Evaluation data The following diagnostics were reviewed and interpreted by me:: lab results, radiology exam(s) and EKG tracing(s) (EKG 01/30/2025 @ 14:45. Atrial fibrillation with RVR, rate 120, left axis deviation, no STEMI ) Lab and/or radiology exams considered but not ordered:: None Interpretation Summary: Ordering Physician: Wesley Barry MD Date of Service: 01/30/25 Procedure(s): XR chest 1V Accession Number(s): [id number] cc: Wesley Barry MD; Will Hooper MD; NO PRIMARY/FAMILY,PHYSICIAN~ Examination: AP chest single view Technique one AP portable semiupright chest single view Date and time: January 30, 2025 1456 hours Comparison October 03, 2024 INDICATIONS: Generalized weakness today. FINDINGS: Normal heart size. Lungs are clear. Prominent osteopenia IMPRESSION: No active disease Dictated By: Will Hooper MD Signed By: <Electronically signed by Will Hooper MD in [place]> 01/30/25 1535 Ordering Physician: Wesley Barry MD Date of Service: 01/30/25 Procedure(s): CT head/brain wo con Accession Number(s): [id number] cc: Wesley Barry MD; Will Hooper MD; NO PRIMARY/FAMILY,PHYSICIAN~ Examination: CT brain head without contrast. 2-D sagittal coronal reconstructions Date and time of exam:January 30, 2025 1504 hours Comparison October 03, 2024 INDICATIONS: Altered mental status beginning this morning CTDI: vol (mGy):49.9 DLP: (mGycm):1005 Technique: Multiple CT axial sections of the brain have been obtained, 5 mm slice thickness. Contrast has not been administered. 2-D sagittal, coronal reconstructions have been obtained Low dose protocols were performed. One or more of the following dose reduction techniques were used; automated exposure control, adjustment of the mA and/or KV according to patient size, use of iterative reconstruction technique. Findings: No significant ventricular enlargement. Intra-axial or extra-axial hemorrhage density is not seen. No mass effect or midline shift Basal cisterns are not remarkable. Fourth ventricle is midline. Cranial vault intact. Significant left maxillary sinusitis Impression: Negative for acute hemorrhage, mass effect or midline shift Advise clinical correlation and follow up accordingly Dictated By: Will Hooper MD Signed By: <Electronically signed by Will Hooper MD in [place]> 01/30/25 1535 Medications / Prescriptions Medications or Prescriptions considered but not ordered:: None Medication administrations:: Medication Administration History Discontinued Medications Sodium Chloride (Ns) 1,000 mls @ 999 mls/hr IV .Q1H1M ONE Stop: 01/30/25 15:37 Last Infusion: 01/30/25 16:13 Dose: Infused Documented By: Admin: 01/30/25 14:46 Dose: 999 mls/hr Documented By: DULCE Ceftriaxone Sodium/Dextrose (Rocephin/D5w 1gm Iv Premix) 1 gm in 50 mls @ 100 mls/hr IV X1 ONE Stop: 01/30/25 17:00 Last Infusion: 01/30/25 17:25 Dose: Infused Documented By: Admin: 01/30/25 16:50 Dose: 100 mls/hr Documented By: DULCE Sodium Chloride (Ns) 1,000 mls @ 999 mls/hr IV .Q1H1M ONE Stop: 01/30/25 19:40 Last Infusion: 01/30/25 20:10 Dose: Infused Documented By: Admin: 01/30/25 18:44 Dose: 999 mls/hr Documented By: DULCE Sodium Chloride (Ns) 1,000 mls @ 999 mls/hr IV .Q1H1M ONE Stop: 01/30/25 19:41 Last Admin: 01/30/25 18:44 Dose: Not Given Documented By: DULCE Non-Admin Reason: Duplicate Medication on eMAR Insulin Human Regular (Insulin Hum Regular 1 Unit/0.01 Ml (Per Unit)) 8 unit SC X1 ONE Stop: 01/30/25 15:38 Last Admin: 01/30/25 15:42 Dose: 8 unit Documented By: DULCE Co-signed By: BRIAN See above Consultations Consultation(s) initiated? (list below): No Diagnosis Most likely diagnosis given after review of the tests above:: Acute lower UTI Hyperglycemia without ketoacidosis Admission Indicated Admission indicated?: not indicated Admission Request Was there a request for admission?: No Disposition Plan Disposition Plan: Discharge Discharge Attestation Discharge Attestation: The patient and all family members were given an opportunity to ask questions and understood the discharge instructions. Discharge instructions specifically effects, indications for sooner follow up or return to the emergency department, and the expected course of current diagnosis. Patient condition: Stable Discharge Plan Plan Patient Disposition: HOME (Self Care) Prescriptions/Referrals Prescriptions/Med Rec: New nitrofurantoin monohyd/m-cryst [Macrobid] 100 mg capsule 100 mg PO Q12H 5 Days Qty: 10 0RF Rx Instructions: must administer with a meal/food No Action atorvastatin 20 mg tablet 20 mg PO QHS 30 Days Qty: 30 3RF (DME) incontinence pad, liner, disp Pad See Rx Instructions .Route Qty: 120 5RF Rx Instructions: As directed (DME) blood pressure monitor [Blood Pressure Kit] Kit See Rx Instructions .Route Qty: 1 0RF Rx Instructions: As directed (DME) Depend [employer] Pad See Rx Instructions .Route Qty: 174 0RF Rx Instructions: As directed (DME) Accutrend Glucose test strips Strip See Rx Instructions .Route Qty: 25 3RF Rx Instructions: As directed (DME) blood-glucose meter [Accu-Chek Guide Glucose Meter] Misc See Rx Instructions .Route Qty: 1 0RF Rx Instructions: As directed (DME) lancets [Fingerstix Lancets] Misc See Rx Instructions .Route Qty: 200 0RF Rx Instructions: As directed (DME) Dexcom G6 [employer] Misc See Rx Instructions .Route Qty: 1 0RF Rx Instructions: As directed (DME) Dexcom G6 Sensor Device See Rx Instructions .Route Qty: 3 1RF Rx Instructions: As directed (DME) Accu-Chek Guide test strips Strip See Rx Instructions .Route Qty: 50 2RF Rx Instructions: As directed (DME) lancets [Acti-Tio Lancets] 28 gauge misc See Rx Instructions .Route Qty: 100 1RF Rx Instructions: As directed glimepiride 4 mg Tablet 4 mg PO QDAY amlodipine 10 mg tablet 5 mg PO QDAY (DME) Dexcom G7 Sensor Device See Rx Instructions .Route Qty: 1 6RF Rx Instructions: As directed (DME) Dexcom G7 [employer] Misc See Rx Instructions .Route Qty: 1 0RF Rx Instructions: As directed (DME) pen needle, diabetic [1st Tier Unifine Pentips] 32 gauge x 5/32 needle See Rx Instructions .Route Qty: 100 2RF Rx Instructions: As directed spironolactone 25 mg tablet 25 mg PO QDAY Qty: 60 0RF furosemide [Lasix] 40 mg tablet 40 mg PO QDAY Qty: 30 1RF aspirin 81 mg Tablet,Delayed Release (Dr/Ec) 81 mg PO QDAY Qty: 30 1RF insulin glargine [Basaglar KwikPen U-100 Insulin] 100 unit/mL (3 mL) insulin pen 25 unit subcut QAM Referrals: No Primary/Family,Physician [Primary Care Provider] - In 1 week Problem List Clinical Impression: Acute lower UTI, Hyperglycemia without ketosis Patient/Caregiver Discharge Instructions Education Materials: ED Diabetes with High Blood Sugar, ED CYSTITIS Female Adult Additional Instructions: It is very important to take your metformin everyday, and especially with a urine infection. Antibiotics were started in the emergency department and you do not need to start your home dose until tomorrow afternoon. Until then ensure a regular schedule for taking home diabetes medicine and to drink plenty of fluids while on antibiotics. Follow-up your primary doctor in 2-3 days for recheck. You can return to the emergency department sooner if symptoms worsen or for any new or concerning issues. Print Language: Nauruan Stand Alone Forms: Diane Award Info., Patient Portal Info Letter
[2025-01-30 15:32] LABS: Alanine Aminotransferase 11 U/L (10-49); Albumin/Globulin Ratio 1.3 (1.2-2.2); Alkaline Phosphatase 117 U/L (46-116); Anion Gap 11 (7-16); Aspartate Amino Transferase 17 U/L (0-34); BUN/Creatinine Ratio 14 Ratio (12-20); Blood Urea Nitrogen 24 mg/dL (9-23); Carbon Dioxide 25.7 mMol/L (20.0-31.0); Chloride 94 mMol/L (98-107); Creatinine (Component) 1.7 mg/dL (0.6-1.3); Estimated Creatinine Clearance 21.1 mL/min (>60); Globulin 3.1 gm/dL (2.3-3.5); Osmolality,Calculated 300 (275-295); Potassium 4.1 mMol/L (3.4-5.1); Sodium 131 mMol/L (136-145); Total Protein 7.1 gm/dL (5.7-8.2); eGFR 29 See Note
[2025-01-30 15:34] LABS: Glucose 711 mg/dL (74-106)
[2025-01-30] MEDS: INSULIN HUM REGULAR 1 UNIT/0.01 ML (PER UNIT) 8 UNIT SC (15:42)
[2025-01-30 15:49] LABS: Bilirubin,Urine Negative (Negative); Blood,Urine 2+ (Negative); Budding Yeast,Urine Present; Glucose, Urine 4+ (Negative); Ketones,Urine Trace (Negative); Leukocyte Esterase,Urine Positive (Negative); Nitrite,Urine Negative (Negative); PH,Urine 6.5 (5.0-7.0); Protein,Urine 1+ (Neg - Trace); RBC,Urine 32 /hpf (0-3); Specific Gravity,Urine 1.023 (1.001-1.035); Transitional Epi Cells,Urine 2 /hpf (0-5); Urobilinogen,Urine Negative mg/dL (0.0-1.0); WBC,Urine 3479 /hpf (0-5)
[2025-01-30 15:50] LABS: Clarity,Urine Turbid (Clear/Hazy); Color,Urine Yellow (Lt Yel-Yel)
[2025-01-30 16:07] VITALS: BP 151/117; PULSE 101; RESP 14; TEMP 37.1; O2SAT 99
[2025-01-30] MEDS: cefTRIAXone/D5w 1gm IV premix 1 GM/50 ML BAG IV (16:50)
[2025-01-30 17:00] VITALS: BP 154/80; PULSE 94; RESP 18; TEMP 37.1; O2SAT 99
--- NOTE | 2025-01-30 19:15 | PC.NURSE ---
literary writer assumes care of patient at this time, pt resting with no c/o pain or acute distress, bed in low position and locked with side rails up x 2 call light in reach.
[2025-01-30 20:00] VITALS: BP 177/88; PULSE 102; RESP 12; TEMP 36.7; O2SAT 98
--- NOTE | 2025-01-30 20:17 | PC.NURSE ---
Granddaughter (Giovany Schaefer) called at this time for case picker of patient. Mr. Simpson (grandson) at bedside awaiting for granddaughter to arrive for d/c instructions and discharge of patient
== END 2025-01-30 21:05 | disposition home or self-care (01) ==
PROVIDERS: Emergency Provider Emergency Medicine
DX: N39.0 Urinary tract infection, site not specified (principal); E11.65 Type 2 diabetes mellitus with hyperglycemia; Z79.4 Long term (current) use of insulin; R53.1 Weakness; R41.82 Altered mental status, unspecified; I48.91 Unspecified atrial fibrillation
CPT/HCPCS: 36415; 70450; 71045; 80053; 81001; 82010; 82803; 85025; 87040; 93005; 96361; 96365; 96372; 99284; J0696; J1815; J7030

== ENCOUNTER → 2025-07-18 | Outpatient (BNVA) | payer MEDICARE, MEDICAID, SELFPAY | END | disposition home or self-care (01) | PROVIDERS: PCP Nurse Practitioner Family; Referring Provider Nurse Practitioner Family; Visit Provider Physician Assistant | DX: I12.9 Hypertensive chronic kidney disease with stage 1 through stage 4 chronic kidney disease, or unspecified chronic kidney disease (principal); E11.22 Type 2 diabetes mellitus with diabetic chronic kidney disease; N18.9 Chronic kidney disease, unspecified; N35.92 Unspecified urethral stricture, female; N32.89 Other specified disorders of bladder | CPT/HCPCS: Q3014 ==